=== PATIENT | male | born 2005 | race Hispanic/Latino ===

== ENCOUNTER 2025-03-10 18:41 | Emergency (ER) | payer OTHER | END 2025-03-10 20:57 | disposition home or self-care (01) | LOC: ERS 18:41 | DX: S96.911A Strain of unspecified muscle and tendon at ankle and foot level, right foot, initial encounter (principal); X50.1XXA Overexertion from prolonged static or awkward postures, initial encounter; Y93.01 Activity, walking, marching and hiking; Y99.0 Civilian activity done for income or pay | CPT/HCPCS: 99283 ==